=== PATIENT | female | born 1990 | race Two or more races ===

== ENCOUNTER 2024-03-22 06:18 | Outpatient (REF) | payer OTHER, SELFPAY ==
--- NOTE | ~2024-03-22 | US_ITS ---
EXAMINATION: US PELVIS CLINICAL INFORMATION: Irregular menses, last menstrual period 03/16/2024. COMPARISON: None available. TECHNIQUE: Ultrasound of the pelvis is performed using both transabdominal and transvaginal transducers along with Doppler. Transvaginal imaging is performed due to inadequate visualization transabdominally. FINDINGS: The uterus is anteverted, retroflexed and measures 8.0 x 3.5 x 5.7 cm. Endometrial thickness is 5 mm. Prominent left adnexal vasculature raises the possibility of pelvic congestion syndrome. Left ovary measures 3.6 x 1.9 x 2.6 cm, volume 6.4 mL. Left ovary is unremarkable. Right ovary measures 7.6 x 5.6 x 7.6 cm, volume 138 mL. Right ovarian cyst 0.9 x 5.6 x 7.0 cm complex cyst with diffuse low-level internal echoes and possible mild mural irregularity. US/US pelvic and transvaginal IMPRESSION: 1. Right ovarian 7.0 cm complex cyst with diffuse low-level internal echoes and possible mild mural irregularity. 2. Prominent left adnexal vasculature raises the possibility of pelvic congestion syndrome. 3. Gynecologic consultation recommended to determine further management. Recommend follow-up ultrasound in 6-8 weeks. Electronically signed by: Monica Johnson MD 04/06/2024 10:21 AM EDT
== END 2024-03-22 06:19 | disposition home or self-care (01) ==
LOC: HO.UMASIMG 06:18
PROVIDERS: Visit Provider Family Medicine
DX: N92.6 Irregular menstruation, unspecified (principal)
CPT/HCPCS: 76830; 76856